=== PATIENT | female | born 1955 | race Caucasian/White ===

== ENCOUNTER 2017-02-24 18:12 | Emergency (ER) | payer MEDICARE, OTHER ==
[~2017-02-24 18:12] MED LIST: AMBIEN10 M1 PO; AMBIEN10 MG; AMBIEN10 MG PO; AMLODIPINE10 MG PO; AMLODIPINE5 MG PO; ASPIRIN ADULT L81 M1 PO; ASPIRIN81 M1 PO; ATENOLOL25 MG PO; ATENOLOL50 MG PO; AVAPRO300 MG; AVAPRO300 MG PO; BENADRYL12.5 MG/5 PO; CARVEDILOL25 MG PO; CATAPRES0.1 MG PO; CELEXA40 MG PO; CIPROFLOXACIN500 MG PO; CLONIDINE0.1 MG PO; CLONIDINE0.2 MG; CLONIDINE0.2 MG PO; CLOPIDOGREL75 MG; COREG25 MG PO; DESYREL100 MG PO; DEXILANT30 MG; DILANTIN100 MG PO; DULCOLAX10 MG R; ELAVIL25 MG; ELAVIL25 MG PO; FIORICET 325 MG1 TAB PO; FLEET ENEMA 13135 ML R; FLEXERIL10 MG PO; IBUPROFEN 30 M800 MG PO; IBUPROFEN200 M1 PO; K-DUR 20MEQ20 MEQ PO; KEFLEX500 MG PO; KLOR-CON M1010 MEQ PO; LABETALOL HCL200 MG PO; LABETALOL200 MG PO; LASIX40 MG PO; LEVOFLOXACIN500 MG PO; LEVOTHYROXIN0.025 MG PO; LISINOPRIL/HCTZ1 TA2 PO; LISINOPRIL10 MG PO; LISINOPRIL20 MG PO; LISINOPRIL40 MG; LYRICA75 MG PO; MAG-OX 400400 MG; MEDROL DOSEPAK4 MG PO; MICRO K10 MEQ PO; MOM30 ML PO; NEXIUM40 MG PO; NITROSTAT0.15 MG SL; NORMODYNE200 MG PO; NORVASC10 MG; NORVASC5 MG PO; OXYBUTYNIN ER15 MG PO; Oscal,Oyster S500 MG PO; PEPCID20 MG; PHENYTOIN SODI100 M1 PO; PHENYTOIN100 MG PO; PLAVIX75 MG PO; PRAVACHOL40 MG PO; PRILOSEC20 MG PO; PRILOSEC40 MG PO; PT DOESN'T KNOW MEDS; RANITIDINE HCL300 M1 PO; REMERON15 MG PO; REQUIP0.25 MG PO; RISPERDAL1 MG PO; SIMVASTATIN10 MG PO; SYMBICORT1 AE1 IH; SYMBICORT1 AE1 INH; SYNTHROID0.025 MG PO; THYROXINE PO; TOPAMAX50 MG PO; TRAMADOL50 MG PO; TRAZADONE HYDR100 MG PO; TRAZODO50 MG PO; TRAZODONE50 MG; TRICOR145 MG PO; TYLENOL325 M2 PO; TYLENOL650 M1 PO; VICODIN 5/500 505 MG PO; VISTARIL50 MG PO; VITAMIN D25000 IU PO; VITAMIN D50000 I1 PO; VITAMIN D50000 I2 PO; XANAX XR1 MG PO; XANAX0.25 MG PO; XANAX0.5 MG PO; ZESTRIL,PRINIVI10 MG PO; ZESTRIL20 MG PO; ZINC SULFATE220 M1 PO; ZOFRAN ODT4 MG SL; ZOLPIDEM10 M1 PO; ZOVIRAX800 MG PO; Zofran4 MG PO; [UNRECOGNIZED DRUG - OTHER]; [UNRECOGNIZED DRUG - OTHER] PO
[2017-02-24 19:26] LABS: BILIRUBIN NEGATIVE (NEGATIVE); BLOOD TRACE-INTACT (NEGATIVE); CLARITY SL CLOUDY (CLEAR); COLOR YELLOW (YELLOW); GLUCOSE NEGATIVE (NEGATIVE); KETONE NEGATIVE (NEGATIVE); LEUKO ESTERASE 1+ (NEGATIVE); NITRITE NEGATIVE (NEGATIVE); PH 6.5 (5.0-9.0); UROBILINOGEN 0.2 E.U./dl (0.2-1.0)
[2017-02-24 19:30] LABS: BASO # 0.1 10*3/uL (0.0-0.1); BASO % 0.5 % (0.0-1.0); EOS # 0.1 10*3/uL (0.0-0.4); EOS % 0.7 % (1.0-4.0); HEMATOCRIT 45.5 % (37.0-47.0); HEMOGLOBIN 14.7 g/dl (12.0-16.0); LYMPH # 4.7 10*3/uL (1.3-4.4); LYMPH % 37.3 % (27.0-41.0); MEAN CELL VOLUME 88.2 fl (81.0-99.0); MEAN CORPUSCULAR HGB 28.5 pg (27.0-31.0); MEAN CORPUSCULAR HGB CONC 32.3 g/dl (33.0-37.0); MEAN PLATELET VOLUME 9.5 fl (9.6-12.3); MONO # 1.3 10*3/uL (0.1-1.0); MONO % 10.6 % (3.0-9.0); NEUT # 6.3 10*3/uL (2.3-7.9); NEUT % 50.6 % (47.0-73.0); PLATELET COUNT AUTOMATED 288 10*3/uL (130-400); RED BLOOD COUNT 5.16 10*6/uL (4.10-5.10); RED CELL DISTRI WIDTH 14.4 % (0-14.5); WHITE BLOOD COUNT 12.5 10*3/uL (4.8-10.8)
[2017-02-24 19:34] LABS: BACTERIA 1+
[2017-02-24 19:51] LABS: ALKALINE PHOSPHATASE 81 U/L (45-117); BUN 14 mg/dl (7-24); CHLORIDE 102 mmol/L (98-107); CREATININE 0.72 mg/dL (0.55-1.02); POTASSIUM 4.2 mmol/L (3.5-5.1); SGOT/AST 19 IU/L (3-35); SGPT/ALT 29 U/L (12-78); SODIUM 137 mmol/L (136-145); TOTAL PROTEIN 8.2 gm/dL (6.4-8.2)
[2017-02-24 19:52] LABS: TROPONIN I < 0.015 ng/ml (<0.045)
[2017-02-24 21:01] VITALS: BP 131/71
== END 2017-02-24 23:42 | disposition home or self-care (01) ==
LOC: ED 18:12
PROVIDERS: Student in an Organized Health Care Education/Training Program
DX: N39.0 Urinary tract infection, site not specified (principal); G40.909 Epilepsy, unspecified, not intractable, without status epilepticus; Z90.49 Acquired absence of other specified parts of digestive tract; Z98.890 Other specified postprocedural states; Z90.710 Acquired absence of both cervix and uterus; Z79.899 Other long term (current) drug therapy; Z79.82 Long term (current) use of aspirin

== ENCOUNTER → 2018-10-07 | Outpatient (CLI) | payer MEDICARE, OTHER | END | disposition home or self-care (01) | LOC: MAMMO 08:03 | DX: Z12.31 Encounter for screening mammogram for malignant neoplasm of breast (principal) ==

== ENCOUNTER 2018-12-16 20:03 | Emergency (ER) | payer MEDICARE, OTHER ==
[~2018-12-16] VITALS: Ht 167.6 cm; Wt 95.3 kg
[2018-12-16 20:06] VITALS: BP 137/60
[2018-12-16 20:35] LABS: BASO # 0.1 10*3/uL (0.0-0.1); BASO % 0.6 % (0.0-1.0); EOS # 0.1 10*3/uL (0.0-0.4); EOS % 0.9 % (1.0-4.0); HEMATOCRIT 38.9 % (37.0-47.0); HEMOGLOBIN 12.5 g/dl (12.0-16.0); LYMPH # 3.8 10*3/uL (1.3-4.4); LYMPH % 31.1 % (27.0-41.0); MEAN CELL VOLUME 88.6 fl (81.0-99.0); MEAN CORPUSCULAR HGB 28.5 pg (27.0-31.0); MEAN CORPUSCULAR HGB CONC 32.1 g/dl (33.0-37.0); MEAN PLATELET VOLUME 9.7 fl (9.6-12.3); MONO # 1.5 10*3/uL (0.1-1.0); NEUT # 6.6 10*3/uL (2.3-7.9); PLATELET COUNT AUTOMATED 296 10*3/uL (130-400); RED BLOOD COUNT 4.39 10*6/uL (4.10-5.10); RED CELL DISTRI WIDTH 15.4 % (0-14.5); WHITE BLOOD COUNT 12.1 10*3/uL (4.8-10.8)
[2018-12-16 20:46] LABS: BILIRUBIN NEGATIVE (NEGATIVE); BLOOD NEGATIVE (NEGATIVE); CLARITY CLEAR (CLEAR); COLOR YELLOW (YELLOW); GLUCOSE NEGATIVE (NEGATIVE); KETONE NEGATIVE (NEGATIVE); LEUKO ESTERASE NEGATIVE (NEGATIVE); NITRITE NEGATIVE (NEGATIVE); PH 6.5 (5.0-9.0); SPECIFIC GRAVITY <= 1.005 (1.005-1.030); UROBILINOGEN 0.2 E.U./dl (0.2-1.0)
[2018-12-16 20:54] LABS: EPITHELIAL CELLS 0-2
[2018-12-16 21:07] LABS: ALBUMIN 3.4 gm/dl (3.1-4.5); ALKALINE PHOSPHATASE 81 U/L (45-117); BUN 20 mg/dl (7-24); CHLORIDE 105 mmol/L (98-107); CREATININE 0.74 mg/dL (0.55-1.02); POTASSIUM 3.9 mmol/L (3.5-5.1); SGOT/AST 17 IU/L (3-35); SGPT/ALT 27 U/L (12-78); SODIUM 137 mmol/L (136-145); TOTAL PROTEIN 7.5 gm/dL (6.4-8.2)
== END 2018-12-16 23:00 | disposition other institution (70) ==
LOC: ED 20:03
PROVIDERS: Emergency Medicine
DX: F03.90 Unspecified dementia, unspecified severity, without behavioral disturbance, psychotic disturbance, mood disturbance, and anxiety (principal); N39.0 Urinary tract infection, site not specified; R42 Dizziness and giddiness; R41.82 Altered mental status, unspecified; K21.9 Gastro-esophageal reflux disease without esophagitis; I25.10 Atherosclerotic heart disease of native coronary artery without angina pectoris; G43.909 Migraine, unspecified, not intractable, without status migrainosus; I10 Essential (primary) hypertension; E78.00 Pure hypercholesterolemia, unspecified; Z79.899 Other long term (current) drug therapy; Z79.82 Long term (current) use of aspirin

== ENCOUNTER → 2021-02-13 | Outpatient (CLI) | payer MEDICARE, OTHER | END | disposition home or self-care (01) | LOC: MAMMO 10:45 | PROVIDERS: ATTEND Internal Medicine | DX: Z12.31 Encounter for screening mammogram for malignant neoplasm of breast (principal) ==

== ENCOUNTER → 2022-02-19 | Outpatient (CLI) | payer MEDICARE, OTHER | END | disposition home or self-care (01) | LOC: MAMMO 08:47 | PROVIDERS: ATTEND Internal Medicine | DX: Z12.31 Encounter for screening mammogram for malignant neoplasm of breast (principal); N64.9 Disorder of breast, unspecified ==

== ENCOUNTER 2023-01-21 18:09 | Inpatient (IN) | payer OTHER, MEDICARE ==
[~2023-01-21] VITALS: Ht 152.4 cm; Wt 82.8 kg
[~2023-01-21 18:09] MED LIST changes: +AVPAK EXTENDED100 M1 PO; +CELEXA10 MG PO; +CEPHALEXIN500 M1 PO; +EXTENDED PHENY200 MG PO; +FOSAMAX70 M1 PO; +KEPPRA750 MG PO; +LIPITOR20 MG PO; +OYSTER SHELL 51 EAC5 PO; +OYSTER SHELL C1 EAC9 PO; +RIVASTIGMINE TAR3 M1 PO
[2023-01-21 18:15] VITALS: BP 77/34
[2023-01-21 20:00] VITALS: BP 104/62
[2023-01-22 08:00] VITALS: BP 59/25
[2023-01-22 20:00] VITALS: BP 68/53
[2023-01-23 08:00] VITALS: BP 74/10
[2023-01-23 20:00] VITALS: BP 54/21
[2023-01-24] VITALS: BP 53/18
[2023-01-24 08:00] VITALS: BP 67/47
[2023-01-24 16:00] VITALS: BP 86/72
[2023-01-24 20:00] VITALS: BP 30/23
== END 2023-01-26 03:10 | DRG 177 ==
LOC: 5E 18:09
PROVIDERS: ADMIT Internal Medicine; ATTEND Internal Medicine
DX: J69.0 Pneumonitis due to inhalation of food and vomit (principal); J96.00 Acute respiratory failure, unspecified whether with hypoxia or hypercapnia; R65.10 Systemic inflammatory response syndrome (SIRS) of non-infectious origin without acute organ dysfunction; D75.839 Thrombocytosis, unspecified; I95.9 Hypotension, unspecified; E86.0 Dehydration; D50.9 Iron deficiency anemia, unspecified; R79.89 Other specified abnormal findings of blood chemistry; D72.829 Elevated white blood cell count, unspecified; Z51.5 Encounter for palliative care